=== PATIENT | female | born 1980 | race American Indian/Alaskan Native ===

== ENCOUNTER 2016-09-18 11:30 | Outpatient (CLI) | payer OTHER ==
--- NOTE | 2016-09-19 14:59 | XRay Report ---
CHEST 2 VIEWS INDICATION: Cough. COMPARISON: None similar at this institution. FINDINGS: PA and lateral chest radiographs demonstrate normal cardiomediastinal silhouette. Clear lungs. Intact bones. CONCLUSION: No acute disease in the chest. Thank you for the opportunity to participate in this patient's care.
== END 2016-09-18 11:31 | disposition home or self-care (01) ==
LOC: SPVIMAG 11:30
PROVIDERS: ATTEND Family Medicine Adult Medicine
DX: R05 Cough (principal)
CPT/HCPCS: 71020